=== PATIENT | male | born 1965 | race Caucasian/White ===

== ENCOUNTER 2017-10-27 07:56 | Emergency (ER) | payer SELFPAY ==
--- NOTE | 2017-10-27 08:09 | EDM.PDOC ---
ED HPI GENERAL MEDICAL PROBLEM - General Stated Complaint: FOOD LODGED IN THROAT- CAN'T SWALLOW Time Seen by Provider: 10/27/17 07:59 Source of Information: Reports: Patient History Limitations: Reports: No Limitations, Combative/Threatening - History of Present Illness INITIAL COMMENTS - FREE TEXT/NARRATIVE: HISTORY AND PHYSICAL: History of present illness: 52-year-old male presenting to emergency department with chief complaint of "stuck swallowed piece of pork" at 1800 yesterday. Patient states that yesterday around 1800 he was eating pork chop when he choked and wasn't able to swallow any further. States that he did go to [facility] ER around 1930 and was given some medications in an IV and was told to follow-up. States that his symptoms did not seem to improve and he is unable to swallow saliva at this time. Presents to the emergency department for further evaluation. Does have a history of one episode similar to this 2 years ago which he states his son gave him the Heimlich maneuver to relieve. This morning he states that the food bolus seem to move some but has not moved since. States that it feels like the food boluses is stuck nears Jorge A's apple. He denies any respiratory symptoms and has not had any problems with breathing in general. Patient takes no medications and has no medical allergies. In general, he has been feeling his normal self up until this event and denies any recent fever, chills, nausea, vomiting, abdominal pain, dysuria, or hematuria. Denies any chest pain, palpitations, shortness of breath, syncopal episodes, or focal neurologic deficits. Patient is originally from [place] and does not see a regular primary care provider here in [place]. Review of systems: As per history of present illness and below otherwise all systems reviewed and negative. Past medical history: As per history of present illness and as reviewed below otherwise noncontributory. Surgical history: As per history of present illness and as reviewed below otherwise noncontributory. Social history: No reported history of drug or alcohol abuse. Family history: As per history of present illness and as reviewed below otherwise noncontributory. Physical exam: HEENT: Atraumatic, normocephalic, pupils reactive, negative for conjunctival pallor or scleral icterus, mucous membranes moist, throat clear, neck supple, nontender, trachea midline. Lungs: Clear to auscultation, breath sounds equal bilaterally, chest nontender. Heart: S1S2, regular, negative for clicks, rubs, or JVD. Abdomen: Soft, nondistended, nontender. Negative for masses or hepatosplenomegaly. Negative for costovertebral tenderness. Pelvis: Stable nontender. Genitourinary: Deferred. Rectal: Deferred. Extremities: Atraumatic, negative for cords or calf pain. Neurovascular unremarkable. Neuro: Awake, alert, oriented. Cranial nerves II through XII unremarkable. Cerebellum unremarkable. Motor and sensory unremarkable throughout. Exam nonfocal. Diagnostics: Neck, chest, abdomen x-ray Therapeutics: 1 mg glucagon IV 1, 8 mg Zofran IV 1, 1 L LR IV 1 Impression: Food bolus esophageal obstruction Plan: Imaging revealed no significant abnormalities. I did call Dr. Chin, surgery, who came in to see the patient, however just prior to her arrival patient felt like the food bolus had moved. When Dr. Chin saw the patient she was able to have him drink a full glass of water without any complications. I did give him 1 mg of glucagon previously which may have helped with passage of the food bolus. Patient was instructed to follow-up with Dr. Chin in 1 week for possible EGD to investigate possible esophageal stricture. Patient was instructed to return to emergency department if he had any new or worsening symptoms and follow up with his normal primary care provider. Throat Pain Score (Numeric/FACES): 2 - Related Data Allergies Allergy/AdvReac Type Severity Reaction Status Date / Time No Known Allergies Allergy Verified 10/27/17 08:17 Home Meds: Home Meds . [No Known Home Meds] 10/27/17 [History] ED ROS GENERAL - Review of Systems Review Of Systems: ROS reveals no pertinent complaints other than HPI. ED EXAM, GENERAL - Physical Exam Exam: See Below Course - Vital Signs Last Recorded V/S: Last Vital Signs Temp 97.9 F 10/27/17 08:18 Pulse 65 10/27/17 08:18 Resp 18 10/27/17 08:18 BP 151/91 H 10/27/17 08:18 Pulse Ox 95 10/27/17 08:18 - Orders/Labs/Meds Orders: Active Orders 24 hr Category Date Time Status Abdomen 2V AP Flat Upright [CR] Stat Exams 10/27/17 08:20 Taken Chest 2V [CR] Stat Exams 10/27/17 08:20 Ordered Neck Soft Tissue [CR] Stat Exams 10/27/17 08:20 Ordered Meds: Medications Discontinued Medications Generic Name Dose Route Start Last Admin Trade Name Reji PRN Reason Stop Dose Admin Glucagon 1 mg 10/27/17 08:21 10/27/17 08:41 Glucagen IVPUSH 10/27/17 08:22 1 mg ONETIME ONE Administration Lactated Ringer's 1,000 mls @ 999 mls/hr 10/27/17 08:22 10/27/17 08:40 Ringers, Lactated IV 10/27/17 09:22 999 mls/hr .BOLUS ONE Administration Ondansetron HCl 8 mg 10/27/17 08:21 10/27/17 08:41 Zofran IVPUSH 10/27/17 08:22 8 mg ONETIME ONE Administration Departure - Departure Time of Disposition: 10:09 Disposition: Home, Self-Care 01 Condition: Good Clinical Impression: Impacted esophageal foreign body Qualifiers: Encounter type: initial encounter Qualified Code(s): T18.108A - Unspecified foreign body in esophagus causing other injury, initial encounter - Discharge Information Referrals: PCP,None [Primary Care Provider] - Additional Instructions: My general discharge The following information is given to patients seen in the emergency department who are being discharged to home. This information is to outline your options for follow-up care. We provide all patients seen in our emergency department with a follow-up referral. The need for follow-up, as well as the timing and circumstances, are variable depending upon the specifics of your emergency department visit. If you don't have a primary care physician on staff, we will provide you with a referral. We always advise you to contact your personal physician following an emergency department visit to inform them of the circumstance of the visit and for follow-up with them and/or the need for any referrals to a consulting specialist. The emergency department will also refer you to a specialist when appropriate. This referral assures that you have the opportunity for follow-up care with a specialist. All of these measure are taken in an effort to provide you with optimal care, which includes your follow-up. Under all circumstances we always encourage you to contact your private physician who remains a resource for coordinating your care. When calling for follow-up care, please make the office aware that this follow-up is from your recent emergency room visit. If for any reason you are refused follow-up, please contact the [facility] Emergency Department at and asked to speak to the emergency department charge nurse. My General Surgery [facility] Specialty Care - General Surgery Professional Building [address] [place] [address], [address] [place] [address] [facility] [address] [place] [id number] Please follow-up with Dr. Chin, surgeon in 1 week. Return to emergency department if new or worsening symptoms. - My Orders Last 24 Hours: My Active Orders 10/27/17 08:20 Abdomen 2V AP Flat Upright [CR] Stat Chest 2V [CR] Stat Neck Soft Tissue [CR] Stat - Assessment/Plan Last 24 Hours: My Active Orders 10/27/17 08:20 Abdomen 2V AP Flat Upright [CR] Stat Chest 2V [CR] Stat Neck Soft Tissue [CR] Stat
[2017-10-27] MEDS ORDERED: Glucagon,Human Recombinant 1 MG Vial IVPUSH ONE (08:21)
[2017-10-27] MEDS ORDERED: Ondansetron 4 MG/2 ML SDV IVPUSH ONE (08:21)
[2017-10-27] MEDS ORDERED: Lactated Ringers 1,000 ML IV ONE (08:22)
--- NOTE | 2017-10-29 13:30 | CR ---
EXAM DATE: 10/27/17 PATIENT'S AGE: 52 Patient: ALLIE BURNS Facility: [place], [place] Site . Site : 1965 Study: XRay Abdomen [id number]/16/2018 9:27:32 AM Ordering Physician: Dany Maldonado Final Report: INDICATION: upper GI obstruction TECHNIQUE: Flat and upright abdominal films are submitted. COMPARISON: None. FINDINGS: Bowel gas pattern is normal with no evidence for bowel obstruction or free air. Old healed right lower rib fractures. Mild degenerative changes in both hips. Mild lumbar curvature with convexity to the left. IMPRESSION: No acute abnormality. Dictated by Pierre Majano MD @ 10/27/2017 9:45:51 AM Dictated by: Pierre Majano MD @ 10/27/2017 09:45:58 (Electronic Signature) Report Signed by Proxy. [facility]ITAL[facility]
--- NOTE | 2017-10-29 13:31 | CR ---
EXAM DATE: 10/27/17 PATIENT'S AGE: 52 Patient: ALLIE BURNS Facility: [place], [place] Site . Site : 1965 Study: XRay Chest [id number]/16/2018 9:27:53 AM Ordering Physician: Dany Maldonado Final Report: INDICATION: upper GI obstruction TECHNIQUE: PA and lateral chest films are submitted. COMPARISON: None. FINDINGS: Heart size and pulmonary vasculature within normal limits. Calcified granuloma in the lingula. Lung bustos are otherwise clear. Old healed rib fractures bilaterally. IMPRESSION: No active disease. Dictated by Pierre Majano MD @ 10/27/2017 9:47:42 AM Dictated by: Pierre Majano MD @ 10/27/2017 09:47:48 (Electronic Signature) Report Signed by Proxy. [facility]ITAL[facility]
--- NOTE | 2017-10-29 13:32 | CR ---
EXAM DATE: 10/27/17 PATIENT'S AGE: 52 Patient: ALLIE BURNS Facility: [place], [place] Site . Site : 1965 Study: XRay ST Neck [id number]/16/2018 9:28:20 AM Ordering Physician: Dany Maldonado Final Report: INDICATION: upper GI obstruction TECHNIQUE: AP and lateral soft tissue neck films submitted. COMPARISON: None. FINDINGS: Soft tissues of the neck appear normal without narrowing of the airway, radiopaque foreign bodies other than overlying clothing artifact, enlargement of the epiglottis or prevertebral soft tissue swelling. Interspace narrowing and marginal spurring at C4-5 through C6-7. Moderate spurring in the cervical facet joints. IMPRESSION: No soft tissue abnormalities are identified. Dictated by Pierre Majano MD @ 10/27/2017 9:43:28 AM Dictated by: Pierre Majano MD @ 10/27/2017 09:43:36 (Electronic Signature) Report Signed by Proxy. [facility]
== END 2017-10-27 10:29 | disposition home or self-care (01) ==
LOC: MW.ED 07:56
DX: T18.128A Food in esophagus causing other injury, initial encounter (principal); K22.2 Esophageal obstruction; X58.XXXA Exposure to other specified factors, initial encounter
CPT/HCPCS: 74019; 96365; 96375; 99283; J1610; J2405; J7120; 70360; 70360-26; 71046; 71046-26